=== PATIENT | male | born 1940 | race Caucasian/White ===

== ENCOUNTER 2023-02-04 12:25 | Outpatient (CLI) | payer MEDICARE, OTHER, SELFPAY ==
--- NOTE | 2023-02-04 12:54 | ECG_ITS ---
Measurements Intervals [place] Rate: 72 P: 60 OK: 184 QRS: -40 QRSD: 102 T: 60 QT: 380 QTc: 416 Interpretive Statements SINUS RHYTHM MARKED LEFT AXIS DEVIATION [QRS AXIS < -30] LOW QRS VOLTAGE IN PRECORDIAL LEADS [QRS DEFLECTION < 1.0 mV IN CHEST LEADS] INCOMPLETE RIGHT BUNDLE BRANCH BLOCK POSSIBLE INFERIOR MYOCARDIAL INFARCTION [30 ms Q WAVE IN II/aVF], PROBABLY OLD1 MODERATE T-WAVE ABNORMALITY, CONSIDER ANTERIOR ISCHEMIA [-0.1+ mV T WAVE IN V3/V4] NO PREVIOUS ECG AVAILABLE FOR COMPARISON Electronically Signed On 02-04-2023 18:01:49 CDT by Frantz Soliz M.D.
[2023-02-04 13:17] LABS: Basophils Percent Auto 0.7 % (0.2-1.2); Eosinophils Absolute Auto 0.2 K/mm3 (0-0.3); Eosinophils Percent Auto 2.6 % (0-4.4); Hematocrit 37.2 % (42.0-52.0); Hemoglobin 11.9 g/dL (14.0-18.0); Immature Granulocyte Absolute 0.07 K/mm3 (0.00-0.031); Immature Granulocyte Percent A 1.2 % (0-0.5); Lymphocytes Absolute Auto 1.25 K/mm3 (0.9-3.2); Lymphocytes Percent Auto 21.4 % (18.3-44.2); Mean Corpuscular Hemoglobin 29.1 pg (26-34); Mean Platelet Volume 10.4 fl (7.4-10.4); Monocytes Absolute Auto 0.6 K/mm3 (0.1-0.6); Monocytes Percent Auto 10.3 % (2.6-8.5); Neutrophils Absolute Auto 3.7 K/mm3 (1.3-6.7); Neutrophils Percent Auto 63.8 % (45.5-73.1); Platelet Count Result 165 k/mm3 (150-375); Red Blood Count 4.09 M/mm3 (4.6-6.20); White Blood Count 5.9 K/mm3 (4.5-10.0)
[2023-02-04 13:45] LABS: Anion Gap 5 mmol/L (8-16); Blood Urea Nitrogen 38 mg/dL (9-20); Calcium 8.4 mg/dL (8.4-10.2); Carbon Dioxide 33 mmol/L (22-30); Chloride 102 mmol/L (98-107); Estimated Glomerular Filt Rate 27; Glucose 252 mg/dL (65-110); Potassium 4.2 mmol/L (3.4-5.0); Sodium 140 mmol/L (137-145)
[2023-02-04 13:49] LABS: INR 1.1; Prothrombin Time 13.8 Seconds (11.1-14.7)
[2023-02-04 13:50] LABS: Partial Thromboplastin Time 28.4 SECONDS (22.3-36.8)
== END 2023-02-04 12:26 | disposition home or self-care (01) ==
LOC: ANHSURGERY 12:34
PROVIDERS: PCP Pediatrics; Visit Provider Urology
DX: Z01.812 Encounter for preprocedural laboratory examination (principal); Z01.810 Encounter for preprocedural cardiovascular examination; I10 Essential (primary) hypertension; R31.0 Gross hematuria; I45.10 Unspecified right bundle-branch block
CPT/HCPCS: 36415; 80048; 85025; 85610; 85730; 87086; 87088; 93005

== ENCOUNTER 2023-02-11 01:53 | Day surgery (SDC) | payer MEDICARE, OTHER, SELFPAY ==
[2023-01-29 11:17] VITALS: BMI 30.4
--- NOTE | 2023-01-29 11:52 | PC.NURSE ---
Report to the Outpatient Waiting Room, entrance under the green pavilion located off [facility], at time __6:00AM on date __02/11/23 . Planned Procedure Time: _7:30AM . Time changes happen often and if your time is changed the preop area will call you the afternoon before. - You and your visitor will be asked to self-screen and do not enter if you have any COVID symptoms. - A mask is optional within the hospital at this time. Patients may have clear liquids (water, carbonated beverages, clear teas, apple juice) until 3 hours prior to surgery with a maximum of 20 ounces. - No food from midnight until time of surgery Take the following medications with a SIP of water the morning of surgery: ___GABAPENTIN, ISOSORBIDE, METOPROLOL, ALBUTEROL INHALER NEEDED, TRAMADOL NEEDED DO NOT STOP ANY OF YOUR OTHER PRESCRIPTION MEDICATIONS PRIOR TO SURGERY ?EXCEPT THE FOLLOWING Medications to discontinue per physician ___HOLD ELIQUIS & ASPIRIN PER DR PEÑA-PATIENT'S CALLING OFFICE Please no make-up, nail citizen of [place], hairspray, perfume, deodorant, or body powder the day of surgery. No jewelry (including any body piercings) or valuables the day of surgery, leave them at home. Please take a shower or bath the night before, or the morning of, surgery with an antibacterial soap. Wear comfortable, loose fitting clothing. Children are encouraged to wear pajamas. - Jewelry must be removed prior to entering the operating room. Rings and piercings that are not removed may be cut off. - The hospital will not accept responsibility for valuables. - Please leave all valuables, including medications, at home the day of surgery. If you are going home after surgery, a licensed taxi driver supervisor must drive you home. - NO public transportation without another adult if you receive anesthesia. - We recommend that an adult stay with you for 24 hours following discharge. - We also recommend that you do not drive, make important decision, drink alcoholic beverages, or take any drugs that were not prescribed by your health care provider for at least 24 hours after your discharge time. Follow any additional instructions given to you from your surgeon. If you or anyone in your household have experienced Covid symptoms in the past week, please notify your surgeon or the nurse liaison at the phone number below for possible testing. Telephone instructions given to _PATIENT'S , RIVERA and asked if any additional questions and then verbalized understanding. Patient advised to call surgeon office or pre surgery nurse liaison [phone] if any additional questions.
[2023-02-11] VITALS (12 sets, daily range): BP systolic 91–124; BP diastolic 48–79; PULSE 61–82; RESP 12–18; TEMP 35.5–36.4; O2SAT 90–100
[2023-02-11] MEDS: LACTATED RINGERS 1,000 ML 30 ML IV CONT (06:39)
[2023-02-11 06:47] LABS: Glucose Point of Care 177 mg/dl (65-105)
--- NOTE | 2023-02-11 07:06 | WPDANESEPPF ---
Anes - Initial Pre Proc Eval Procedure: Operation Date: 02/11/23 07:30 Proposed Procedures p Cystoscopy, Extraction Prostatic Calcification, Possible Fulguration, - Jerome Caputo MD s Possible Trans Urethral Resection Prostate - Jerome Caputo MD Date/Time: 02/11/23 07:06 Surgeon: Jerome Caputo MD Pre Op Diagnosis: gross hematuria, UTI Patient Data Age: 82 Gender: M Height: 1.8 m Weight: 78.4 kg Last Vital Signs Temp 36.6 C 02/11/23 06:29 Pulse 74 02/11/23 06:29 Resp 18 02/11/23 06:29 BP 131/84 02/11/23 06:29 Pulse Ox 97 02/11/23 06:29 O2 Del Method Room Air 02/11/23 06:29 Allergies Allergy/AdvReac Type Severity Reaction Status Date / Time levofloxacin Allergy Unknown Unknown Verified 02/11/23 07:01 Home Medications Medication Instructions Recorded Confirmed Type albuterol sulfate 90 mcg/actuation 2 puff inhalation Q6-8H PRN Dyspnea 01/29/23 02/11/23 History aerosol inhaler apixaban 2.5 mg tablet (Eliquis) 2.5 mg PO BID 01/29/23 02/11/23 History aspirin 81 mg tablet,delayed 81 mg PO DAILY 01/29/23 02/11/23 History release atorvastatin 80 mg tablet 80 mg PO HS 01/29/23 02/11/23 History ciprofloxacin HCl 500 mg tablet 500 mg PO Q12H 01/29/23 02/11/23 History esomeprazole magnesium 20 mg 20 mg PO HS 01/29/23 02/11/23 History capsule,delayed release (Nexium 24HR) ezetimibe 10 mg tablet 10 mg PO 3XW 01/29/23 02/11/23 History furosemide 40 mg tablet 20 mg PO QAM 01/29/23 02/11/23 History gabapentin 300 mg capsule 600 mg PO BID 01/29/23 02/11/23 History insulin aspar prot-insulin aspart 40 ml subcut BID 01/29/23 02/11/23 History 100 unit/mL (70-30) subcutaneous pen (Novolog Mix 70-30FlexPen U-100) isosorbide mononitrate 30 mg 30 mg PO QAM 01/29/23 02/11/23 History tablet,extended release 24 hr metoprolol succinate 25 mg 12.5 mg PO HS 01/29/23 02/11/23 History tablet,extended release 24 hr pramipexole 0.125 mg tablet 0.125 mg PO BID PRN Muscle Spasm 01/29/23 02/11/23 History tamsulosin 0.4 mg capsule 0.4 mg PO HS 01/29/23 02/11/23 History tramadol 50 mg tablet 50 mg PO BID 01/29/23 02/11/23 History trazodone 100 mg tablet 100 mg PO HS PRN Insomnia 01/29/23 02/11/23 History Laboratory Tests 02/11/23 06:44 POC Capillary Glucose 177 mg/dl H mg/dl (65-105) Patient hx anesthesia problems: none Family hx anesthesia problems: none Results Review: All pre-operative results and documents have been reviewed as part of the pre-operative evaluation. [facility] Social History Social History Smoking packs per day: 0.2 Smoking cigarettes per day: 4.0 Years smoked: 3 Smoking pack-years: 0.60 Smoking status: Former smoker Tobacco type: cigarettes Smoking end date: 04/19/1967 Alcohol intake: never Substance use: never Living arrangements: with family Additional living arrangements comments: Spiritual care concerns: No Anes - Eval Final PreProcedure Day of Procedure 02/11/23 07:06 Patient weight: normal Heart: regular rate and rhythm Lungs: clear to auscultation Airway: Mallampati scale class II Neurological: other (alert) Last oral intake: >/= 8 hours ASA classification: III Emergent: no Anesthetic plan: proceed Anesthesia type and monitoring: general LMA and standard monitoring Results Review: All pre-operative results and documents have been reviewed as part of the pre-operative evaluation. Informed Consent: The patient's anesthetic plan and its attendant risks and benefits were discussed with the patient/family/POA. Questions were solicited and answers provided to the satisfaction of the patient/family/POA.
--- NOTE | 2023-02-11 07:09 | WPDHPUPDATE1 ---
History and Physical Update Update Date/Time: 02/11/23 07:09 History and Physical has been reviewed, including an updated exam of the patient. There are NO changes in the patient's condition. Risks, benefits, and alternatives have been discussed and questions answered. Patient agrees to proceed with procedure. Proceed with cysto , extraction of prostatic calculus, possible fulguration /turp
[2023-02-11] MEDS: ceFAZolin 2 GM/D5W 50 ML 2 GM/50 ML BAG IVPB (07:20)
[2023-02-11] MEDS: LIDOCAINE HCL 2% GEL UROJET 10 ML PKG MUCOUS MEM (07:40)
--- NOTE | 2023-02-11 08:39 | P.OP_ITS ---
Procedure Note - Detailed Date of Procedure 02/11/23 Pre-op Diagnosis gross hematuria, UTI, BPH, prostatic calcification Post-op Diagnosis Same Procedure Performed Cysto with extraction of prostatic calculus, transurethral resection of prostate complex Cooper catheter placement [address] Surgeon Jerome Caputo MD Anesthesia General Description of Procedure Patient was taken to the operative suite correctly identified. Once anesthesia was obtained was placed in dorsal lithotomy position and prepped and draped usual sterile fashion. Twenty-four [place] resectoscope sheath was placed into the bladder. Patient has no evidence of tumors but he does have lateral lobe hypertrophy with a 1 cm prostatic calcification adhered to the prostate. It was difficult to see the ureteral orifices due to a large median lobe protrusion. We went ahead and extracted this prostatic calcification. We then resected the median lobe in the lateral lobes. This was performed from the bladder neck to the verumontanum. At termination the ureteral orifices were visualized. Hemostasis was achieved using electrocautery. Twenty-four three-way was then placed with a catheter guide. 25 cc of saline were placed in the balloon. This was connected to continuous bladder irrigation. Patient is taken recovery st able condition. Patient will be admitted plan is to leave the Cooper catheter until next Friday or Friday. This completes dictation on patient Ras Rios please send a copy of op note to my office Estimated Blood Loss 75 Drains Yes Packing No Pathology Yes Complications No immediate complications Condition Stable Disposition PACU
[2023-02-11 08:52] LABS: Glucose Point of Care 173 mg/dl (65-105)
[2023-02-11] MEDS: GABAPENTIN 300 MG CAPSULE 600 MG PO ×2 (12:17→17:31)
[2023-02-11] MEDS: ISOSORBIDE MONONITRATE 30 MG TAB.ER.24H PO (12:17)
[2023-02-11] MEDS: DOCUSATE SODIUM 100 MG CAPSULE PO ×2 (12:17→21:16)
[2023-02-11] MEDS: FUROSEMIDE 20 MG TABLET PO (12:18)
--- NOTE | 2023-02-11 13:07 | ADMGEN ---
This patient, Ras Rios, was admitted to [facility] Surg Room 301-01 at 1030. Patient/family oriented to hospital policies and general routines including ID bracelet, bed and alarms, visiting hours, pain management, procedures, bathroom and other care routines, personal items, smoking policy, room service/diet, and visiting hours. Information on how to activate the Rapid Response Team has been discussed. Patient/Family are encouraged to report perceived risks to care and to ask questions if they do not understand what they are told or what they should do.
[2023-02-11] MEDS: ceFAZolin 1 GM/NS 50 ML 1 GM/50 ML BAG IVPB ×2 (15:37→22:31)
[2023-02-11 16:55] LABS: Glucose Point of Care 427 mg/dl (65-105)
[2023-02-11] MEDS: INSULIN ASPART (*BKC) 100 UNITS/ML SUB-Q (18:21)
[2023-02-11] MEDS: ATORVASTATIN 40 MG TABLET 80 MG PO (21:16)
[2023-02-11] MEDS: METOPROLOL SUCCINATE EXT REL 12.5 MG TABCR PO (21:17)
[2023-02-11] MEDS: PANTOPRAZOLE 40 MG TABLET PO (21:17)
[2023-02-11 22:08] LABS: Glucose Point of Care 440 mg/dl (65-105)
[2023-02-11] MEDS: INSULIN HUMAN ISOPHAN/REGULAR 70/30 (*BKC) 100 UNITS/ML 27 UNITS SUB-Q (22:58)
[2023-02-11] MEDS: traZODone HCL 50 MG TABLET 100 MG PO (23:05)
[2023-02-12 00:02] VITALS: BP 114/71; PULSE 71; RESP 18; TEMP 35.8; O2SAT 96
[2023-02-12 04:02] VITALS: BP 122/66; PULSE 80; RESP 16; TEMP 36.4; O2SAT 96
[2023-02-12 06:00] LABS: Hematocrit 31.5 % (42.0-52.0); Hemoglobin 10.3 g/dL (14.0-18.0)
[2023-02-12 06:11] LABS: Anion Gap 8 mmol/L (8-16); Blood Urea Nitrogen 42 mg/dL (9-20); Calcium 8.1 mg/dL (8.4-10.2); Carbon Dioxide 27 mmol/L (22-30); Chloride 105 mmol/L (98-107); Estimated CRCL calculation 23 ml/min; Estimated Glomerular Filt Rate 27; Glucose 124 mg/dL (65-110); Potassium 3.8 mmol/L (3.4-5.0); Sodium 140 mmol/L (137-145)
--- NOTE | 2023-02-12 07:47 | WPDUROPN2 ---
Progress Note: A&P Assessment and Plan (1) Gross hematuria: Code(s): R31.0 - Gross hematuria Status: Acute Assessment and Plan: Status post transurethral resection of his prostate. Hematuria most likely secondary to the prostatic calcification. Doing well at this time. Wean CBI to off. If we are in remains fairly clear will discharge home with Cooper catheter. Remove Cooper catheter in a week's time in the office. (2) BPH (benign prostatic hyperplasia): Code(s): N40.0 - Benign prostatic hyperplasia without lower urinary tract symptoms Status: Acute Assessment and Plan: See above (3) Calculus of prostate: Code(s): N42.0 - Calculus of prostate Status: Acute Assessment and Plan: See above Subjective Subjective Date/Time Seen: 02/12/23 07:47 Post Op day: 1 (Transurethral resection of prostate) Principal diagnosis: BPH, prostatic calcification, gross hematuria Interval history: Doing well on postoperative day 1. His urine is clear with minimal CBI. We will turn off completely at this time. He has no significant complaints Review of Systems Review of Systems: All systems reviewed & are unremarkable except as noted in HPI and below Exam Const: General: cooperative and comfortable Eyes: General: appearance normal, both eyes and all related structures Resp: Effort & Inspection: normal respiratory effort Cardio: Rate: regular rate Rhythm: regular rhythm GI: Inspection: normal to inspection Urinary Catheter: Urinary Catheter: patent and draining and urine clear Objective Data Vital Signs Vital Signs: Vital Signs - 24 hr 02/11/23 08:43 02/11/23 08:58 02/11/23 09:15 Temperature 36.4 C Pulse Rate 82 69 66 Respiratory Rate 14 14 12 Blood Pressure 124/79 124/78 110/70 Pulse Oximetry 98 100 90 Oxygen Delivery Simple Face Mask Simple Face Mask Room Air Oxygen Flow Rate 6 6 02/11/23 09:30 02/11/23 10:00 02/11/23 10:32 Temperature 35.5 C L Pulse Rate 64 62 61 Respiratory Rate 14 14 14 Blood Pressure 116/70 110/68 91/48 L Pulse Oximetry 96 97 99 Oxygen Delivery Nasal Cannula Nasal Cannula Oxygen Flow Rate 2 2 02/11/23 11:02 02/11/23 13:00 02/11/23 14:15 Temperature 35.5 C L Pulse Rate 68 Respiratory Rate 14 Blood Pressure 109/63 104/60 Pulse Oximetry 95 97 Oxygen Delivery Nasal Cannula Oxygen Flow Rate 2 02/11/23 19:00 02/11/23 20:02 02/12/23 00:02 Temperature 35.9 C L 35.8 C L Pulse Rate 68 70 71 Respiratory Rate 14 18 18 Blood Pressure 122/69 114/71 Pulse Oximetry 97 97 96 Oxygen Delivery Nasal Cannula Oxygen Flow Rate 2 02/12/23 04:02 Temperature 36.4 C Pulse Rate 80 Respiratory Rate 16 Blood Pressure 122/66 Pulse Oximetry 96 Oxygen Delivery Oxygen Flow Rate Intake/Output Intake/Output: Intake & Output 02/09/23 02/10/23 02/11/23 02/12/23 23:59 23:59 23:59 23:59 Intake Total 1618 21511 Output Total 84314 [id number] Meds/Results Medications: Active Medications Generic Name Dose Route Start Last Admin Trade Name Freq PRN Reason Stop Dose Admin Hydrocodone Bitart/Acetaminophen 1 tab 02/11/23 10:17 Hydrocodone/Acetaminophen (*Crx) 5-325 Mg Tablet PO Q4H PRN Pain Rated 1-6 Albuterol 2 puff 02/11/23 10:17 Albuterol Sulfate (*Sp) Aerosol 1 Puff INHALATION Q6-8H PRN Dyspnea Atorvastatin Calcium 80 mg 02/11/23 21:00 02/11/23 21:16 Atorvastatin 40 Mg Tablet PO 80 mg HS JOSEPH Administration Cephalexin HCl 500 mg 02/12/23 09:00 Cephalexin 500 Mg Capsule PO QID JOSEPH Dextrose 12.5 gm 02/11/23 17:45 Dextrose 50% 25 Gm/50 Ml Syringe IV PUSH PRN PRN Hypoglycemia Protocol Docusate Sodium 100 mg 02/11/23 12:00 02/11/23 21:16 Docusate Sodium 100 Mg Capsule PO 100 mg BID JOSEPH Administration Ezetimibe 10 mg 02/12/23 09:00 Ezetimibe 10 Mg Tablet PO [id number] [facility]
[2023-02-12 07:51] LABS: Glucose Point of Care 121 mg/dl (65-105)
[2023-02-12] MEDS: GABAPENTIN 300 MG CAPSULE 600 MG PO ×2 (09:06→17:27)
[2023-02-12] MEDS: CEPHALEXIN 500 MG CAPSULE PO ×3 (09:06→17:26)
[2023-02-12] MEDS: EZETIMIBE 10 MG TABLET PO (09:07)
[2023-02-12] MEDS: FUROSEMIDE 20 MG TABLET PO (09:07)
[2023-02-12] MEDS: ISOSORBIDE MONONITRATE 30 MG TAB.ER.24H PO (09:07)
[2023-02-12] MEDS: DOCUSATE SODIUM 100 MG CAPSULE PO ×2 (09:07→17:26)
[2023-02-12] MEDS: INSULIN HUMAN ISOPHAN/REGULAR 70/30 (*BKC) 100 UNITS/ML 27 UNITS SUB-Q ×2 (09:10→17:28)
[2023-02-12 09:30] VITALS: BP 104/68; PULSE 73; RESP 18; TEMP 36.2; O2SAT 95
[2023-02-12 12:02] VITALS: BP 143/67; PULSE 75; RESP 18; TEMP 36.4; O2SAT 95
--- NOTE | 2023-02-12 12:07 | PM.IMCN ---
Assessment and Plan Assessment and plan (1) Calculus of prostate: Code(s): N42.0 - Calculus of prostate Status: Acute (2) BPH (benign prostatic hyperplasia): Code(s): N40.0 - Benign prostatic hyperplasia without lower urinary tract symptoms Status: Acute (3) Gross hematuria: Code(s): R31.0 - Gross hematuria Status: Acute (4) Diabetes mellitus: Code(s): E11.9 - Type 2 diabetes mellitus without complications Status: Acute Plan 82 year old male with PMH of DM admitted after elective procedure of Cystoscopy with extraction of prostatic calculus, transurethral resection of prostate complex Cooper catheter placement 1)BPH s/p Cystoscopy with extraction of prostatic calculus, transurethral resection of prostate complex Cooper catheter placement Post op care as per primary team H/H remains stable 2)Diabetes Mellitus: Noted hyperglycemia last night, likely with missing insulin dose BG check TID AC and HS c/w home dose of premixed insulin Adjust dose as needed 3)CKD Stage 3: Stable kidney function c/w home dose lasix Will recheck BMP in AM if stays tonight 4)DVT ppx: SCD, on eliquis at home, will be resumed when ok with Urology 5)Code:Full 6)Dispo:as per primary team HPI Data of Consult Consult date: 02/12/23 Requesting Physician: Jerome Caputo MD Primary Care Provider: George FisherMD Consult Narrative Reason for consult: hyperglycemia, post operative medical management Narrative: Ras Rios is a 82 year old male with PMH of DM admitted after elective procedure of Cystoscopy with extraction of prostatic calculus, transurethral resection of prostate complex Cooper catheter placement [address] Medicine service was consulted this morning for medical management of DM(hyperglycemia) and other chronic medical problems. Has been off CBI this morning,, has no complaints, eating breakfast. Review of Systems Review of Systems: All systems reviewed & are unremarkable except as noted in HPI and below PMFSH Social History Social History Smoking packs per day: 0.2 Smoking cigarettes per day: 4.0 Years smoked: 3 Smoking pack-years: 0.60 Smoking status: Former smoker Tobacco type: cigarettes Smoking end date: 04/19/1967 Alcohol intake: never Substance use: never Lack of Transportation: No Lack of Food: Never True Current Housing: I Have Housing Concerned About Future Housing: No Difficulty Paying Gas/Electric Bills: No Difficulty Paying for Meds: No Currently Unemployed: No Education: Associate Degree Difficulty w/ Childcare or Family Care: No Living arrangements: with family Additional living arrangements comments: Spiritual care concerns: No Meds Home Medications and Allergies Home Medications Medication Instructions Recorded Confirmed Type albuterol sulfate 90 mcg/actuation 2 puff inhalation Q6-8H PRN Dyspnea 01/29/23 02/11/23 History aerosol inhaler apixaban 2.5 mg tablet (Eliquis) 2.5 mg PO BID 01/29/23 02/11/23 History aspirin 81 mg tablet,delayed 81 mg PO DAILY 01/29/23 02/11/23 History release atorvastatin 80 mg tablet 80 mg PO HS 01/29/23 02/11/23 History ciprofloxacin HCl 500 mg tablet 500 mg PO Q12H 01/29/23 02/11/23 History esomeprazole magnesium 20 mg 20 mg PO HS 01/29/23 02/11/23 History capsule,delayed release (Nexium 24HR) ezetimibe 10 mg tablet 10 mg PO 3XW 01/29/23 02/11/23 History furosemide 40 mg tablet 20 mg PO QAM 01/29/23 02/11/23 History gabapentin 300 mg capsule 600 mg PO BID 01/29/23 02/11/23 History insulin aspar prot-insulin aspart 40 ml subcut BID 01/29/23 02/11/23 History 100 unit/mL (70-30) subcutaneous pen (Novolog Mix 70-30FlexPen U-100) isosorbide mononitrate 30 mg 30 mg PO QAM 01/29/23 02/11/23 History tablet,extended release 24 hr metoprolol succinate 25 mg 12
[2023-02-12 12:24] LABS: Glucose Point of Care 166 mg/dl (65-105)
--- NOTE | 2023-02-12 13:31 | WPDANESPN ---
Anes - Prog Note Post-Op Date/Time: 02/12/23 13:31 Cardiovascular status: normal Respiratory status: normal Airway patency: baseline Mental status: baseline Post-Op hydration status: normal Vital Signs: Last Vital Signs Temp 36.4 C 02/12/23 12:02 Pulse 75 02/12/23 12:02 Resp 18 02/12/23 12:02 BP 143/67 H 02/12/23 12:02 Pulse Ox 95 02/12/23 12:02 O2 Del Method Room Air 02/12/23 09:00 O2 Flow Rate 2 02/11/23 19:00 Pain Score (VAS): 12/27 I/O: Intake & Output 02/11/23 02/12/23 02/12/23 23:59 07:59 15:59 Intake Total 800 10015 720 Output Total 04791 50975 650 Balance -35426 -6198 70 Laboratory Tests 02/12/23 05:41 02/12/23 05:41 02/11/23 02/11/23 02/12/23 16:42 20:17 05:41 Hgb 10.3 L Hct 31.5 L Sodium 140 Potassium 3.8 Chloride 105 Carbon Dioxide 27 Anion Gap 8 BUN 42 H Creatinine 2.30 H Estim Creat Clear Calc 23 Estimated GFR 27 L Glucose 124 H POC Capillary Glucose 427 H 440 H Calcium 8.1 L 02/12/23 02/12/23 07:24 11:34 Hgb Hct Sodium Potassium Chloride Carbon Dioxide Anion Gap BUN Creatinine Estim Creat Clear Calc Estimated GFR Glucose POC Capillary Glucose 121 H 166 H Calcium Post-procedural complaints: none Patient Feedback: Patient satisfied with anesthetic care.
[2023-02-12] MEDS: HYOSCYAMINE SULFATE 0.125 MG TABLET SUBLINGUAL (13:55)
[2023-02-12 16:55] LABS: Glucose Point of Care 145 mg/dl (65-105)
== END 2023-02-12 18:55 | disposition home or self-care (01) ==
LOC: ANHSURGERY 05:47 → ANH3MEDSUR 10:19
PROVIDERS: PCP Pediatrics; Visit Provider Urology
PROC: (CPT 52352; principal; 2023-02-11 07:30)
PROC: 0VT08ZZ Resection of Prostate, Via Natural or Artificial Opening Endoscopic (ICD-10-PCS; CPT 52601; 2023-02-11 07:30)
DX: N40.0 Benign prostatic hyperplasia without lower urinary tract symptoms (principal); N42.0 Calculus of prostate; R31.0 Gross hematuria; E11.22 Type 2 diabetes mellitus with diabetic chronic kidney disease; N18.30 Chronic kidney disease, stage 3 unspecified; I25.2 Old myocardial infarction; Z79.51 Long term (current) use of inhaled steroids; Z79.01 Long term (current) use of anticoagulants; Z79.82 Long term (current) use of aspirin; Z79.4 Long term (current) use of insulin; Z87.891 Personal history of nicotine dependence; Z95.5 Presence of coronary angioplasty implant and graft; Z86.718 Personal history of other venous thrombosis and embolism; Z86.711 Personal history of pulmonary embolism
CPT/HCPCS: 52601; 36415; 80048; 82365; 82948; 85014; 85018; 88300; 88305; A9270; C1769; J0690; J1100; J1815; J2370; J2405; J2704; J3010; J7120

== ENCOUNTER → 2023-06-27 10:57 | Outpatient (CLI) | payer MEDICARE, OTHER, SELFPAY ==
--- NOTE | ~2023-06-27 | MR_ITS ---
MRI of the lumbar spine Clinical History: Spinal stenosis Technique: Axial T2-weighted images, and sagittal T1-weighted, T2-weighted, and T2 fat-sat images wer e acquired. Findings: There is straightening of the normal lumbar lordosis. There is 4 mm retrolisthesis of L4 ov er L5. No suspicious bone marrow signal abnormality seen. Probable mild chronic loss of height of L2 and L1. At L1-L2, there is disc bulge and advanced facet arthropathy, resulting in moderate central canal [place] nosis/thecal sac compression. There is moderate bilateral neural foraminal narrowing. At L2-L3, there is advanced degenerative disc disease. There is diffuse disc bulge, most prominent at the left foraminal region, with severe facet arthropathy. These factors contribute to moderate to se servando central canal stenosis and thecal sac compression. There is moderate bilateral neural foraminal narrowing. At L3-L4, there is diffuse disc bulge and severe facet arthropathy, which contribute to severe spinal canal stenosis/thecal sac compression. There is severe left neural foraminal narrowing, and moderate to severe right neural foraminal narrowing. At L4-L5, there is disc bulge and facet arthropathy, which contribute to severe spinal canal stenosis /thecal sac compression. There is severe bilateral neural foraminal narrowing. At L5-S1, disc bulge and facet arthropathy result in mild to moderate central canal stenosis. There i s severe bilateral neural foraminal narrowing. Paravertebral soft tissues are unremarkable. 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 There is multilevel severe ce ntral canal stenosis/thecal sac compression and multilevel severe neural foraminal narrowing. 4 mm retrolisthesis of L4 over L5. Reviewed, dictated and finalized at [facility]. 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 There i s multilevel severe central canal stenosis/thecal sac compression and multileve l severe neural foraminal narrowing. 4 mm retrolisthesis of L4 over L5.
== END ==
PROVIDERS: PCP Pediatrics; Visit Provider Physician Assistant
DX: M48.062 Spinal stenosis, lumbar region with neurogenic claudication (principal); M47.896 Other spondylosis, lumbar region
CPT/HCPCS: 72148